=== PATIENT | female | born 1950 | race Caucasian/White ===

== ENCOUNTER 2017-08-03 09:00 | Inpatient (IN) | payer MEDICARE ==
[2017-08-03 09:44] VITALS: BMI 37.5
--- NOTE | 2017-08-08 13:17 | HP ---
HISTORY OF PRESENT ILLNESS: The patient is a 67-year-old female with a 15-year history of progressi ve pain in the left hip without injury. She has had progressive symptoms despite rest, restriction of activities, and use of anti-inflammatory medication including etodolac. She uses a cane for ambu lation and the pain has progressed to the point it is interfering with day to day activities, includ ing walking, getting dressed and sleeping. PAST MEDICAL HISTORY: The patient is otherwise in good health. She has history of hypertension, hy perlipidemia, reflux and prediabetes. She also has degenerative arthritis of her right knee. CURRENT MEDICATIONS: Include metoprolol and etodolac. ALLERGIES: She has no known allergies. FAMILY HISTORY: Otherwise unremarkable. SOCIAL HISTORY: Otherwise unremarkable. REVIEW OF SYSTEMS: Otherwise unremarkable. PHYSICAL EXAMINATION: GENERAL: Reveals a healthy heavyset female. HEENT: Unremarkable. NECK: Supple. CHEST: Clear. HEART: Regular rate and rhythm. ABDOMEN: Soft and nontender. PELVIC: Deferred. RECTAL: Deferred. BREAST: Deferred. EXTREMITIES: Pertinent findings related to the left hip and left lower extremity. There is no poin t tenderness. Left leg is approximately 1 cm short. There is decreased range of motion of the left hip and groin pain with internal rotation. There is a left antalgic gait. NEUROVASCULAR: Intact. Pulses are 1+. X-RAY FINDINGS: X-rays of the left hip reveal severe degenerative arthritis with no joint space rem aining. IMPRESSION: 1. Degenerative arthritis, left hip. 2. History of hypertension. 3. History of degenerative joint disease, right knee. PLAN: Left total hip replacement. The nature of the surgery, length of recovery and potential comp lications such as infection, loss of motion, incomplete relief, neurovascular injury, thromboembolic phenomenon, leg length discrepancy, possible transfusion and need for revision have been discussed in detail.
[2017-08-09] MEDS ORDERED: Sodium Chloride 0.9% 100 ML ONE ×2 (06:04→09:30)
[2017-08-09] MEDS ORDERED: Vancomycin HCl 1.5 GM in Sodium Chloride 0.9% 250 ML 300 ML IVPB SCH ×2 (06:15→20:00)
[2017-08-09] MEDS ORDERED: Midazolam HCl 2 mg/2 ml Vial ONE ×2 (06:30→06:44)
[2017-08-09] MEDS ORDERED: Fentanyl 100 MCG/2 ML VIAL ONE ×5 (06:30→09:23)
[2017-08-09] MEDS ORDERED: diphenhydrAMINE HCl 50 MG/ML 1 ML VIAL IVP PRN (07:00)
[2017-08-09] MEDS ORDERED: diphenhydrAMINE HCl 50 MG/ML 1 ML VIAL IM PRN (07:00)
[2017-08-09] MEDS ORDERED: Promethazine HCl 25 MG SUPP PR PRN (07:00)
[2017-08-09] MEDS ORDERED: Ketorolac Tromethamine 30 MG/ML VIAL IVP PRN ×2 (07:00→09:25)
[2017-08-09] MEDS ORDERED: Ondansetron HCl/PF 4 MG/2 ML Vial IVP PRN ×3 (07:00→09:39)
[2017-08-09] MEDS ORDERED: HYDROcodone/Acetaminophen 5/325 mg Tablet PO PRN (07:00)
[2017-08-09] MEDS ORDERED: Bupivacaine 0.25% 10 ML VIAL EPIDURAL PRN (07:00)
[2017-08-09] MEDS ORDERED: Promethazine HCl 25 MG/ML VIAL IM PRN ×2 (07:00→09:25)
[2017-08-09] MEDS ORDERED: traMADol HCl 50 MG TAB PO PRN ×3 (07:00→09:39)
[2017-08-09] MEDS ORDERED: Eucerin (Mineral Oil/Petrolatum,White) 30 gm Jar TOP PRN (07:00)
[2017-08-09] MEDS ORDERED: Naloxone HCl 0.4 mg/ml Vial IV PRN (07:00)
[2017-08-09] MEDS ORDERED: Naloxone HCl 0.4 mg/ml Vial IVP PRN (07:00)
[2017-08-09] MEDS ORDERED: Fentanyl/Bupivacaine 250 ML in Premix Bag 1 BAG EPIDURAL SCH (07:00)
[2017-08-09] MEDS ORDERED: Zolpidem Tartrate 5 MG TAB PO PRN ×2 (07:00→09:39)
[2017-08-09] MEDS ORDERED: Lidocaine 2% PF 10 ML AMP (For Epidural Use) ONE (07:17)
[2017-08-09] MEDS ORDERED: PHENYLEPHRINE-NS 100 MCG/ML 10 ML SYRINGE ONE (07:17)
[2017-08-09] MEDS ORDERED: Propofol 200 MG/20 ML VIAL ONE (07:17)
[2017-08-09] MEDS ORDERED: Bupivacaine HCl 0.5%/Epinephrine 1:200,000/PF 30 ml Vial ONE (08:39)
[2017-08-09] MEDS ORDERED: Sterile Water 10 ML ONE (09:22)
[2017-08-09] MEDS ORDERED: Meperidine HCl/PF 25 MG/ML VIAL SLOW IVP PRN (09:25)
[2017-08-09] MEDS ORDERED: Promethazine HCl 25 MG/ML VIAL SLOW IVP PRN ×2 (09:25→09:39)
[2017-08-09] MEDS ORDERED: Tranexamic Acid 1,000 MG in Sodium Chloride 0.9% 100 ML IVPB SCH ×2 (09:30→09:39)
[2017-08-09] MEDS ORDERED: Acetaminophen 325 MG TAB PO PRN (09:39)
[2017-08-09] MEDS ORDERED: HYDROcodone/Acetaminophen 10/325 mg Tablet PO PRN ×2 (09:39)
[2017-08-09] MEDS ORDERED: Fentanyl 100 MCG/2 ML VIAL SLOW IVP PRN ×2 (09:39)
[2017-08-09] MEDS ORDERED: diphenhydrAMINE HCl 25 MG CAP PO PRN (09:39)
--- NOTE | 2017-08-09 09:48 | OP ---
DATE OF PROCEDURE: 08/09/2017 SURGEON: Derrek Ralph M.D. MEAT SLICER: Fitz Díaz PA-C. ANESTHESIA: General plus epidural. PREOPERATIVE DIAGNOSIS: Degenerative arthritis, left hip. POSTOPERATIVE DIAGNOSIS: Degenerative arthritis, left hip. PROCEDURES: Left total hip replacement with uncemented Tritanium acetabular shell with X3 polyethyl ten insert and uncemented Accolade femoral stem with 36 mm Delta ceramic femoral head. NARRATIVE REPORT: After satisfactory anesthesia was induced in supine position, the patient was salma rich in the left decubitus position and this position held with the hip positioning device. A sequen tial compression device was used on the non-operative leg throughout the procedure. The patient was prepped and draped in routine sterile fashion. Hip was approached through a lateral curvilinear in cision centered over the greater trochanter and carried down to subcutaneous tissues, and bleeding p oints controlled with Bovie cautery. IT band and gluteal fascia were split skin incision. The dire ct lateral approach to the hip joint was accomplished by dividing the anterior third of the gluteus medius minimus tendons with Bovie cautery and reflecting this as a single flap anteriorly and medial ly along with the vastus lateralis. Anterior capsulectomy was performed with the hip dislocated ant eriorly. There was marked degenerative arthritis of the hip with large areas of exposed bone and mu ltiple osteophytes. The femoral neck was osteotomized with an oscillating saw using a trial prosthe sis as a guide. The acetabulum was exposed and cleaned of all soft tissue, debris and rim osteophyt es. The acetabulum was then reamed in sequence with power reamers down to bleeding subchondral bone to a total of 55 mm. It was felt that a 56 mm Trident outer shell could be placed in a press fit f ashion. The permanent X3 polyethylene insert was then snapped into position and the proximal femur exposed. It was opened with a box osteotome and rasped in sequence to accept a 3.5 Accolade femoral rasp. Trial reduction with 132 degree angle trunnion and the standard neck length 32 mm head gave appropriate size, fit, stability, and correction of leg length discrepancy. Hip was again dislocate d and the trial components removed. The permanent 3.5 Accolade femoral stem was then hammered in po sition. There was again good fit and stability of the component. The standard neck length of 36 mm Delta ceramic femoral head was then placed on the trunnion and the hip again reduced and found to b e stable. The wound was copiously irrigated with pulsatile lavage. The abductors were repaired wit h interrupted #2 Vicryl. IT band and gluteal fascia were repaired with interrupted #2 Vicryl and a running #2 Quill. Subcutaneous tissues were closed with interrupted #2 Vicryl and a running 0 Quill suture. Skin was closed with running subcuticular 3-0 Monoderm and SurgiSeal skin adhesive. Steri le dressing was applied and the patient turned to the supine position and a pillow placed between he r legs. Sequential compression device was applied to the operated leg. She was awakened and taken to recovery room in stable condition. There were no apparent intraoperative complications. The est imated blood loss was 300 mL.
[2017-08-09] MEDS ORDERED: Fentanyl/Bupivacaine 250 ML EPIDURAL ONE (10:08)
--- NOTE | 2017-08-09 10:45 | RAD ---
LEFT HIP 3 VIEWS: Date: 08/09/17 HISTORY: Status post arthroplasty. FINDINGS: Left hip arthroplasty is identified. There are postoperative changes in the soft tissues. IMPRESSION: Left hip arthroplasty. POS: [facility]
[2017-08-09] MEDS: diphenhydrAMINE HCl 25 MG CAP PO PRN ×3 (13:05→23:51)
[2017-08-09] MEDS: Sodium Chloride 0.9% 1,000 ML IV SCH ×2 (13:09→13:11)
[2017-08-09] MEDS: Metoprolol Tartrate 50 MG TAB PO SCH (20:44)
[2017-08-09] MEDS: HYDROcodone/Acetaminophen 5/325 mg Tablet PO PRN (23:51)
[2017-08-10] MEDS: Sodium Chloride 0.9% 1,000 ML IV SCH ×2 (04:51→11:37)
[2017-08-10 05:37] LABS: Hematocrit 29.5 % (36.0-47.0); Mean Platelet Volume 6.6 fL (7.4-10.4); Red Blood Cell (RBC) Count 3.19 mill/uL (4.20-5.40); White Blood Cell (WBC) Count 9.2 thou/uL (4.8-10.8)
[2017-08-10] MEDS: HYDROcodone/Acetaminophen 5/325 mg Tablet PO PRN ×2 (05:51→16:25)
[2017-08-10] MEDS: diphenhydrAMINE HCl 25 MG CAP PO PRN ×2 (05:51→11:24)
[2017-08-10] MEDS: Multivitamin W/ Minerals 1 TAB PO SCH (09:20)
[2017-08-10] MEDS: Ferrous Gluconate 324 MG TAB PO SCH ×2 (09:20→20:45)
[2017-08-10] MEDS: Senokot S 8.6-50 MG TAB PO SCH ×2 (09:21→20:45)
[2017-08-10] MEDS: Metoprolol Tartrate 50 MG TAB PO SCH ×3 (09:21→20:49)
[2017-08-11] MEDS: Sodium Chloride 0.9% 1,000 ML IV SCH ×2 (01:04→17:20)
[2017-08-11] MEDS: HYDROcodone/Acetaminophen 5/325 mg Tablet PO PRN ×3 (01:10→15:26)
[2017-08-11 05:32] LABS: Hematocrit 30.5 % (36.0-47.0); Mean Platelet Volume 6.9 fL (7.4-10.4); Red Blood Cell (RBC) Count 3.28 mill/uL (4.20-5.40); White Blood Cell (WBC) Count 12.8 thou/uL (4.8-10.8)
[2017-08-11] MEDS: Ferrous Gluconate 324 MG TAB PO SCH (07:59)
[2017-08-11] MEDS: Senokot S 8.6-50 MG TAB PO SCH (07:59)
[2017-08-11] MEDS: Multivitamin W/ Minerals 1 TAB PO SCH (08:00)
[2017-08-11] MEDS: Metoprolol Tartrate 50 MG TAB PO SCH (08:00)
[2017-08-11 08:29] VITALS: BP 134/63; TEMP 97.1
--- NOTE | 2017-08-12 13:31 | DIS ---
DATE OF ADMISSION: 08/09/2017 DATE OF DISCHARGE: 08/11/2017 PREOPERATIVE DIAGNOSIS: Degenerative arthritis, left hip. DISCHARGE DIAGNOSIS: Degenerative arthritis, left hip. PROCEDURES PERFORMED: The patient underwent a left total hip replacement with uncemented Tritanium acetabular shell with X3 polyethylene insert, and uncemented Accolate femoral stem with 36 mm Delta ceramic femoral head. HOSPITAL COURSE: Hospital stay was unremarkable. The patient was admitted to [address] where she worked with staff, physical therapy, occupational therapy, and progressed quite well. By postop day 2, she was ready to discharge home. DISCHARGE CONDITION: Good/stable. DISPOSITION: Home with family. FOLLOWUP: Followup would be in 2-3 weeks, sooner if there are problems or concerns. DISCHARGE MEDICATIONS: Given with usage instructions.
== END 2017-08-11 16:00 | disposition home or self-care (01) | DRG 470 ==
LOC: SJJU 08-09 05:20
PROVIDERS: ADMIT Orthopaedic Surgery; ATTEND Orthopaedic Surgery
PROC: 0SRB01A Replacement of Left Hip Joint with Metal Synthetic Substitute, Uncemented, Open Approach (ICD-10-PCS; principal; 2017-08-09)
DX: M16.12 Unilateral primary osteoarthritis, left hip (principal); E66.01 Morbid (severe) obesity due to excess calories; I10 Essential (primary) hypertension; Z68.37 Body mass index [BMI] 37.0-37.9, adult; K21.9 Gastro-esophageal reflux disease without esophagitis; E78.5 Hyperlipidemia, unspecified; E03.9 Hypothyroidism, unspecified
CPT/HCPCS: 36415; 85027; A4216; G8978-GP-CL; G8979-GP-CJ; G8987-GO-CK; G8988-GO-CH; J0670; J1885; J2001; J2250; J2405; J2550; J2704; J3010; J3370; J7050

== ENCOUNTER 2017-08-03 09:01 | Outpatient (CLI) | payer MEDICARE ==
[2017-08-03 10:57] LABS: Hematocrit 41.1 % (36.0-47.0); Mean Platelet Volume 6.7 fL (7.4-10.4)
[2017-08-03 11:22] LABS: Anion Gap 16 mmol/L (10-20); BUN (Urea Nitrogen) 22 mg/dL (9.8-20.1); Calc. Creatinine Clearance 0 mL/min (70-130); Calcium 9.9 mg/dL (7.8-10.44); Carbon Dioxide 24 mmol/L (23-31); Chloride 102 mmol/L (98-107); Estimated GFR-MDRD 71
[2017-08-03 11:35] LABS: Prothrombin Time 12.9 SEC (12.0-14.7)
[2017-08-03 15:03] LABS: Bilirubin Large (Negative); Blood, Urine Negative (Negative); Glucose, Urine (Dipstick) Negative (Negative); Ketone, Urine Negative (Negative); Nitrite Negative (Negative); Protein, Urine (Dipstick) Negative (Neg-Trace); Urobilinogen 0.2 mg/dL (0.2-1.0)
[2017-08-03 15:06] LABS: Bacteria/HPF None Seen HPF (None Seen); Hyaline Casts/LPF 0-3 HYALINE CAST LPF (0-3 Hyaline); Squamous Epithelial 0-3 HPF (0-3)
--- NOTE | 2017-08-05 09:04 | EKG ---
Test Reason : PREOP Blood Pressure : / mmHG Vent. Rate : 065 BPM Atrial Rate : 065 BPM P-R Int : 162 ms QRS Dur : 082 ms QT Int : 396 ms P-R-T Axes : -26 069 056 degrees QTc Int : 411 ms Normal sinus rhythm Low voltage QRS Borderline ECG No previous ECGs available Confirmed by TALIA COLEMAN ([id number]) on 08/05/2017 9:04:27 AM Referred By: HODAN Confirmed By:TALIA COLEMAN
== END 2017-08-03 09:02 | disposition home or self-care (01) ==
LOC: LABBT 09:01
PROVIDERS: ATTEND Orthopaedic Surgery
DX: Z01.818 Encounter for other preprocedural examination (principal); M16.12 Unilateral primary osteoarthritis, left hip
CPT/HCPCS: 80048; 81001; 85027; 85610; 86850; 86900; 86901; 87081; 87086; 93005; 93010

== ENCOUNTER 2017-10-07 13:43 | Outpatient (CLI) | payer MEDICARE ==
--- NOTE | 2017-10-07 15:14 | MMO ---
BILATERAL SCREENING MAMMOGRAMS: Date: 10/07/2017 COMPARISON: Prior exams of 2013, 2014, and 2015. This patient's mammogram was interpreted with the assistance of computer-aided detection. FINDINGS: Scattered fibroglandular densities. Biopsy clip in the cristal-areolar region of the right breast again noted. There is a cluster of calcifications in the left breast again noted. Recommend one-year follow-up. IMPRESSION: BI-RADS 2: Benign findings. POS: [facility]
== END 2017-10-07 13:44 | disposition home or self-care (01) ==
LOC: SCSMAMMO 13:43
PROVIDERS: ATTEND Family Medicine
DX: Z12.31 Encounter for screening mammogram for malignant neoplasm of breast (principal)
CPT/HCPCS: 77067; G0202

== ENCOUNTER 2017-12-07 08:21 | Outpatient (CLI) | payer MEDICARE ==
[2017-12-07 09:35] LABS: Hemoglobin 13.6 g/dL (12.0-16.0); Mean Corpuscular HGB CONC 33.5 g/dL (32.0-36.0); Mean Corpuscular Hemoglobin 30.3 pg (27.0-31.0); Mean Corpuscular Volume 90.5 fl (81.0-99.0); Mean Platelet Volume 6.7 fL (7.4-10.4); Platelet Count 482 thou/uL (130-400); RBC Distribution Width 12.6 % (11.5-14.5); Red Blood Cell (RBC) Count 4.48 mill/uL (4.20-5.40)
[2017-12-07 09:40] LABS: Bilirubin Large (Negative); Blood, Urine Negative (Negative); Clarity CLEAR (Clear); Glucose, Urine (Dipstick) Negative (Negative); Leukocyte Trace (Negative); Nitrite Negative (Negative); Protein, Urine (Dipstick) Negative (Neg-Trace); Specific Gravity, Urine 1.022 (1.002-1.036); Urobilinogen 0.2 mg/dL (0.2-1.0)
[2017-12-07 09:41] LABS: Bacteria/HPF None Seen HPF (None Seen); Hyaline Casts/LPF 4-6 HYALINE CAST LPF (0-3 Hyaline); Pathc Cast-AUWi Flag 1.76 (0-2.49); RBC/HPF 0-3 HPF (0-3); Squamous Epithelial 0-3 HPF (0-3); WBC/HPF 0-3 HPF (0-3)
[2017-12-07 09:43] LABS: Prothrombin Time 13.2 SEC (12.0-14.7)
[2017-12-07 09:47] LABS: Anion Gap 12 mmol/L (10-20); BUN (Urea Nitrogen) 16 mg/dL (9.8-20.1); Calc. Creatinine Clearance 0 mL/min (70-130); Calcium 10.2 mg/dL (7.8-10.44); Carbon Dioxide 27 mmol/L (23-31); Chloride 106 mmol/L (98-107); Estimated GFR-MDRD 74; Glucose 93 mg/dL (80-115); Potassium 4.9 mmol/L (3.5-5.1); Sodium 140 mmol/L (136-145)
== END 2017-12-07 08:22 | disposition home or self-care (01) ==
LOC: LABBT 08:21
PROVIDERS: ATTEND Orthopaedic Surgery
DX: Z01.818 Encounter for other preprocedural examination (principal); M17.11 Unilateral primary osteoarthritis, right knee
CPT/HCPCS: 80048; 81001; 85027; 85610; 86850; 86900; 86901; 87081; 87086

== ENCOUNTER 2017-12-13 07:26 | Day surgery (SDC) | payer MEDICARE ==
[2017-12-07 08:36] VITALS: BMI 37.3
--- NOTE | 2017-12-07 09:02 | HP ---
HISTORY OF PRESENT ILLNESS: The patient is a 67-year-old female with a long history of progressive d egenerative arthritis of the right knee without injury. She has had progressive symptoms despite res t, restriction of activities, use of anti-inflammatory medications, and previous cortisone injections . The pain is now interfering with day-to-day activities including walking and getting dressed. PAST MEDICAL HISTORY: The patient underwent left total hip replacement approximately 4 months ago wi th good results and has not had any further problems. She continues to use a cane because of right k nee pain, but no left hip pain. PAST MEDICAL HISTORY: As noted above. The patient is otherwise in good health. She has history of prediabetes and hypertension. CURRENT MEDICATIONS: Include metoprolol and Meloxicam. ALLERGIES: She has no known allergies. FAMILY HISTORY/SOCIAL HISTORY/REVIEW OF SYSTEMS: Otherwise unremarkable. PHYSICAL EXAMINATION: GENERAL: Reveals a healthy heavyset female. HEENT: Unremarkable. NECK: Supple. CHEST: Clear. HEART: Regular rate and rhythm. ABDOMEN: Soft, nontender. PELVIC/RECTAL/BREAST: Exams are deferred. EXTREMITIES: Pertinent findings related to the right knee. There is no definite effusion. There is mild valgus deformity. There is tenderness and crepitus over the lateral joint line. Range of nely on is 5-105 degrees. There is trace valgus laxity. There are palpable distal pulses. There is a ri ght antalgic gait. Neurovascular exam is intact. LABORATORY AND X-RAY FINDINGS: X-rays of the right knee reveal bone on bone collapse laterally with progression from previous x-rays. IMPRESSION: 1. Degenerative arthritis, right knee. 2. Status post left total hip replacement. PLAN: Right total knee replacement. The nature of the surgery, length of recovery, and potential co mplications such as infection, loss of motion, incomplete relief, delayed wound healing, neurovascula r injury, thromboembolic phenomena, possible transfusion, and need for revision have been discussed i n detail.
[2017-12-13] MEDS ORDERED: Tranexamic Acid 1,000 MG/100 ML BAG ONE ×2 (08:09→12:31)
[2017-12-13] MEDS ORDERED: CEFAZOLIN/Water 2 GM/20 ML SYRINGE ONE (08:09)
[2017-12-13] MEDS ORDERED: Vancomycin HCl 1.5 GM in Sodium Chloride 0.9% 250 ML 300 ML IVPB SCH ×2 (08:15→20:00)
[2017-12-13] MEDS ORDERED: Fentanyl 100 MCG/2 ML VIAL ONE ×4 (09:35→13:22)
[2017-12-13] MEDS ORDERED: Midazolam HCl 2 mg/2 ml Vial ONE (09:35)
[2017-12-13] MEDS ORDERED: Promethazine HCl 25 MG/ML VIAL IM PRN ×2 (09:48→12:39)
[2017-12-13] MEDS ORDERED: Fentanyl 100 MCG/2 ML VIAL IV PRN (09:48)
[2017-12-13] MEDS ORDERED: Ondansetron HCl/PF 4 MG/2 ML Vial IVP PRN ×3 (09:48→12:55)
[2017-12-13] MEDS ORDERED: Zolpidem Tartrate 5 MG TAB PO PRN ×2 (09:48→12:55)
[2017-12-13] MEDS ORDERED: HYDROcodone/Acetaminophen 10/325 mg Tablet PO PRN ×3 (09:48→12:55)
[2017-12-13] MEDS ORDERED: traMADol HCl 50 MG TAB PO PRN ×3 (09:48→12:55)
[2017-12-13] MEDS ORDERED: Ropivacaine 0.2% 550 ML 550 ML NERVE BLCK SCH (09:48)
[2017-12-13] MEDS ORDERED: Lidocaine 1% w/Epinephrine 1:200K 30 ML VIAL ONE (09:53)
[2017-12-13] MEDS ORDERED: Bupivacaine 0.25% HCL 30 ML VIAL ONE (09:53)
[2017-12-13] MEDS: Sodium Chloride 0.9% 1,000 ML IV SCH ×2 (12:05→23:34)
[2017-12-13] MEDS: Ketorolac Tromethamine 30 MG/ML VIAL IVP SCH ×3 (12:05→23:09)
[2017-12-13] MEDS ORDERED: Promethazine HCl 25 MG/ML VIAL SLOW IVP PRN ×2 (12:39→12:55)
[2017-12-13] MEDS ORDERED: Tranexamic Acid 1,000 MG in Sodium Chloride 0.9% 100 ML IVPB SCH ×2 (12:45→12:55)
[2017-12-13] MEDS ORDERED: Acetaminophen 325 MG TAB PO PRN (12:55)
[2017-12-13] MEDS ORDERED: Fentanyl 100 MCG/2 ML VIAL SLOW IVP PRN ×2 (12:55)
[2017-12-13] MEDS ORDERED: diphenhydrAMINE 25 MG CAP PO PRN (12:55)
[2017-12-13] MEDS ORDERED: Ketorolac Tromethamine 30 MG/ML VIAL IVP SCH (14:00)
--- NOTE | 2017-12-13 14:07 | OP ---
DATE OF PROCEDURE: 12/13/2017 PREOPERATIVE DIAGNOSIS: Right knee end-stage tricompartmental osteoarthritis. POSTOPERATIVE DIAGNOSIS: Right knee end-stage tricompartmental osteoarthritis. OPERATIVE PROCEDURE: Cemented cruciate-sparing computer-assisted navigated right total knee arthropl rosalino. SURGEON: Derrek Ralph M.D. COLLISION CENTER MANAGER: Grzegorz Ho PA-C. ANESTHESIA: General via laryngeal mask airway augmented with indwelling adductor canal block with a single shot sciatic block. COMPONENTS USED: [employer] Triathlon cemented cruciate-sparing size 4, cruciate-sparing fe moral component size 3, cemented universal tibial baseplate, 9 mm polyethylene fixed bearing insert, A29 patellar button. TOURNIQUET TIME: 66 minutes at 300 mmHg. FINDINGS: End-stage severe degenerative tricompartmental disease, bone on bone arthrosis, periarticu lar osteophyte formation, large serous effusion. FLUIDS: Urine output was 200 mL and input was 1 liter of crystalloid. ESTIMATED BLOOD LOSS: Less than 100. DRAINS: None. SPECIMENS: None. COMPLICATIONS: None. COUNTS: Correct. INDICATIONS FOR SURGERY: Ms. Velarde is a 67-year-old white female who has had progressive right knee pain amplified with standing and walking for the last 5-7 years. She has failed conservative manage ment and elected to proceed with total knee arthroplasty as definitive treatment of her pain. PROCEDURE IN DETAIL: After informed consent was obtained in the preoperative holding area. The sav[place] ent was taken to the operative suite where general anesthesia was induced. Once adequate level of ge neral anesthesia was obtained, the patient was positioned and a well-padded tourniquet was placed coco und the right proximal thigh. The right lower extremity was then prepped and draped in the usual brittney rile fashion. Prior to exsanguination, a time out was called and all members of the surgical team ag kishore upon site, surgeon, and patient. The extremity was then exsanguinated and the tourniquet was ra ised. A midline longitudinal incision was then made directly over the patella extending two fingerbr eadths above the superior pole of the patella and two fingerbreadths inferior to the inferior patella r pole of the patella. Deeper subcutaneous layers were dissected sharply and local bleeding was cont rolled with Bovie electrocautery. A quad tendon longitudinal split was then made sharply and a media n parapatellar arthrotomy was carried out both sharp and with Bovie electrocautery, carried down to o ne fingerbreadth medial to the tibial tubercle. The knee was then placed into flexion and the patell a was everted nicely, and a copious fat pad ectomy was performed allowing for greater exposure of the tibia. The computer-assisted distal femoral fiducial was then placed and pinned firmly, and the dis claire femoral cutting guide was pinned firmly into place. The oscillating saw was then used to remove the appropriate amount of bone. The 4-in-1 cutting block was then placed on the distal femur and the oscillating saw was used to remove the appropriate amount of bone off of the anterior, posterior, an d chamfer cuts. After completion of the chamfer cuts, the box-cutting guide was placed, malleted fir mly into place and pinned securely, and an osteotome was used to make the distal cut and the oscillat ing saw was then used to make the medial and lateral box cuts. This came out quite nicely and was re moved with Bovie electrocautery, and the oscillating saw was then used to broaden the lateral medial castañeda of the box cut. After completion of bone cuts, the anterior cruciate ligament was resected sha rply and the posterior cruciate ligament retractor was placed and the tibia was subluxed for better e xposure. Partial meniscectomies were carried out, and the tibial computer-assisted fiducial was pinn ed, and the cutting guide was placed. Oscillating saw was then used to remove the bone with Hohmann retractors used to take care and protect the collateral ligaments. After the tibial resection was pe rformed, a laminar qa tester was placed in between the freshened bone cuts. The knee placed at 90 deg loraine and further bilateral meniscectomies were carried out, and the curved osteotome and curettage wa s used to remove any excess bone spurs in the posterior compartment. The trial femoral component, ti bial baseplate were placed with the appropriate polyethylene trial insert with an appropriate polyeth ylene spacer and patellar button. The knee was taken through full range of motion with flexion and e xtension from 0-90 degrees and patellar broach squarely in the trochlea without any squinting or subl uxation noted. The knee was also stable to varus and valgus stressing at 0, 15, 45, and 90 degrees o f flexion. The drawer was negative. All trial components were then removed and the keel punch was u sed to provide the appropriate defect in the tibia with a mallet. The freshened bone cuts were copio usly irrigated with pulsatile lavage of about 1-1/2 liters to remove all excess debris. The freshene d bone cuts were then dried and with suction and lap sponge. The knee was placed in flexion and retr actors were placed to provide access to all bone cuts. Tobramycin impregnated methyl methacrylate ce ment was then placed on the freshened bone cuts and implants which were malleted firmly into place. Curettage and [place] elevators were used to remove any excess bone cement. The knee was placed into f ull extension and the patellar button was placed under compression, and the cement was allowed to cur e. Once completed, the components were again taken through full range of motion and copious irrigati on of the knee was carried out with another liter of normal saline. All components were inspected fu lly with full range of motion and varus and valgus stressing. There was no laxity noted and full exte nsion was observed clinically. Primary closure was accomplished with #2 interrupted Vicryl stitch of the arthrotomy defect. This was oversewn with a #2 running Quill barbed stitch. The subcutaneous l roscoe was then closed with a running 0 barbed Monocryl stitch and skin closure accomplished with a run max subcuticular 3-0 Monocryl barbed Quill stitch and augmented with cement on the skin. Tourniquet was lowered. Good spontaneous return of distal pulses was noted clinically and a sterile dressing w as applied to the incision. The procedure was terminated without any complications. The patient was awakened in the operative suite and taken to the recovery room in stable condition.
--- NOTE | 2017-12-13 14:26 | RAD ---
TWO VIEWS OF THE RIGHT KNEE: INDICATION: Status post right total knee arthroplasty. FINDINGS: There is a right total knee prosthesis that projects in the expected position. There is no gross com plication evident. IMPRESSION: Postoperative knee. POS: BENJI
[2017-12-13] MEDS ORDERED: Ropivacaine 0.2% HCl/PF (40 MG/20 ML VIAL) ONE (14:51)
[2017-12-13] MEDS ORDERED: Ropivacaine 0.5% HCl/PF (150 MG/30 ML VIAL) ONE (14:51)
[2017-12-13] MEDS ORDERED: Dexamethasone 20 MG/5 ML VIAL ONE (15:18)
[2017-12-13] MEDS ORDERED: Propofol 200 MG/20 ML VIAL ONE (15:18)
[2017-12-13] MEDS ORDERED: Ondansetron HCl/PF 4 MG/2 ML Vial ONE (15:18)
[2017-12-13] MEDS ORDERED: Lidocaine 1% PF 5 ML VIAL ONE (15:18)
[2017-12-13] MEDS: CEFAZOLIN/Water 2 GM/20 ML SYRINGE SLOW IVP SCH ×2 (16:14→23:09)
[2017-12-13] MEDS ORDERED: Calcium Carbonate 500 MG ChewTAB PO PRN (20:13)
[2017-12-13] MEDS ORDERED: Mag-Al 1200 mg/1200 mg/30 ML UDCUP PO PRN (20:13)
[2017-12-13] MEDS: Ferrous Gluconate 324 MG TAB PO SCH (21:35)
[2017-12-13] MEDS: Senokot S 8.6-50 MG TAB PO SCH (21:35)
[2017-12-13] MEDS: Aspirin 81 mg Enteric Coated Tablet PO SCH (21:35)
[2017-12-13] MEDS: Metoprolol Tartrate 50 MG TAB PO SCH (21:35)
--- NOTE | 2017-12-13 21:51 | PDOC.PN ---
- Subjective Encounter Start Date: 12/13/17 Encounter Start Time: 19:30 Patient seen and examined. No new complaints. No CP/SOB. - Objective MAR Reviewed: Yes Vital Signs & Weight: Vital Signs (12 hours) Temp Pulse Pulse Resp BP BP Pulse Ox 12/13/17 17:10 97.7 F 72 18 142/72 H 12/13/17 15:54 81 147/75 H 12/13/17 14:34 97.8 F 68 20 98 12/13/17 13:50 97.8 F 68 20 172/80 H 97 Weight Weight 238 lb I&O: 12/12/17 12/13/17 12/14/17 06:59 06:59 06:59 Intake Total 800 Output Total 400 Balance 400 Result Diagrams: 12/14/17 05:19 EKG Reviewed by me: Yes (SR) Phys Exam - Physical Examination Constitutional: NAD Respiratory: no wheezing, no rhonchi Cardiovascular: RRR, no rub Gastrointestinal: soft, non-tender, positive bowel sounds Musculoskeletal: no edema Neurological: moves all 4 limbs Dx/Plan - Plan DVT proph w/SCDs IMPRESSION: 1. HTN - on Metoprolol 2. DJD 3. Dyslipidemia - diet controlled 4. Prediabetes 5. GERD 6. Obesity BMI 37.3 7. CKD 2 PLAN: * Cont Metoprolol * Add PRN meds * Cont to monitor * Add Tums/Maalox for dyspepsia * Will follow. Thank you for this consultation. * Full Code. DPOA - self/family. Laboratory Tests 01/27/17 11/09/17 12/07/17 09:09 10:37 09:17 Creatinine 0.78 Estimated GFR (MDRD) 74 Triglycerides 152 H Cholesterol 210 H LDL Cholesterol, Calc 120 TSH 3rd Generation 3.9872 Review of Systems - Review of Systems Respiratory: negative: Cough, Dry, Shortness of Breath, Hemoptysis, SOB with Excertion, Pleuritic Pain, Sputum, Wheezing Cardiovascular: negative: chest pain, palpitations, orthopnea, paroxysmal nocturnal dyspnea, edema, light headedness Gastrointestinal: Other (dyspepsia). negative: Nausea, Vomiting, Abdominal Pain , Diarrhea, Constipation, Melena, Hematochezia - Medications/Allergies Allergies/Adverse Reactions: Allergies Allergy/AdvReac Type Severity Reaction Status Date / Time No Known Allergies Allergy Unverified 12/07/17 08:37 Medications: Current Medications Acetaminophen (Tylenol) 650 mg PO Q4H PRN PRN Reason: OJEDA/ T > 101F; Mild Pain (1-3) Hydrocodone Bitart/Acetaminophen ([place] 10/325) 1 tab PO Q4H PRN PRN Reason: Moderate Pain (4-6) Hydrocodone Bitart/Acetaminophen ([place] 10/325) 2 tab PO Q4H PRN PRN Reason: Severe Pain (7-10) Al Hydroxide/Mg Hydroxide (Maalox) 30 ml PO Q6H PRN PRN Reason: Heartburn or Indigestion Aspirin (Ecotrin) 81 mg PO BID [facility] Last Admin: 12/13/17 21:35 Dose: 81 mg Calcium Carbonate (Tums) 1,000 mg PO Q4H PRN PRN Reason: Heartburn or Indigestion Cefazolin Sodium (Ancef) 2 gm SLOW IVP 0800,1600,2359 [facility] Stop: 12/14/17 00:00 Last Admin: 12/13/17 16:14 Dose: 2 gm Diphenhydramine HCl (Benadryl) 25 mg PO Q6H PRN PRN Reason: Itching Fentanyl (Sublimaze) 50 mcg IV Q1H PRN PRN Reason: Breakthrough Pain Ferrous Gluconate (Fergon) 324 mg PO BID [facility] Last Admin: 12/13/17 21:35 Dose: 324 mg Ropivacaine (Ropivacaine 0.2% 550 Ml) 550 mls @ 10 mls/hr NERVE BLCK INF [facility] Sodium Chloride (Normal Saline 0.9%) 1,000 mls @ 100 mls/hr IV .Q10H [facility] Last Admin: 12/13/17 12:05 Dose: Not Given Vancomycin HCl 1.5 gm/ Sodium (Chloride) 300 mls @ 200 mls/hr IVPB 1999 [facility] Stop: 12/13/17 23:59 Last Admin: 12/13/17 21:00 Dose: 300 mls Iron/Minerals/Multivitamins (Theragran M) 1 tab PO DAILY [facility] Ketorolac Tromethamine (Toradol) 30 mg IVP Q6HR [facility] Stop: 12/15/17 06:01 Last Admin: 12/13/17 17:17 Dose: 30 mg Metoprolol Tartrate (Lopressor) 50 mg PO BID [facility] Last Admin: 12/13/17 21:35 Dose: 50 mg Ondansetron HCl (Zofran) 4 mg IVP Q6H PRN PRN Reason: Nausea/Vomiting Promethazine HCl (Phenergan) 12.5 mg IM Q4H PRN PRN Reason: Nausea Promethazine HCl (Phenergan) 12.5 mg SLOW IVP Q4H PRN PRN Reason: Nausea/Vomiting Senna/Docusate Sodium (Senokot S) 2 tab PO BID [facility] Last Admin: 12/13/17 21:35 Dose: 2 tab Sodium Chloride (Flush - Normal Saline) 10 ml IVF PRN PRN PRN Reason: Saline Flush Tramadol HCl (Ultram) 50 mg PO Q6H PRN PRN Reason: Mild Pain (1-3) Tramadol HCl (Ultram) 100 mg PO Q6H PRN PRN Reason: Mild Pain (1-3) Zolpidem Tartrate (Ambien) 5 mg PO HSPRN PRN PRN Reason: Insomnia
[2017-12-14 05:58] LABS: Hemoglobin 11.7 g/dL (12.0-16.0); Mean Corpuscular HGB CONC 33.8 g/dL (32.0-36.0); Mean Corpuscular Hemoglobin 30.5 pg (27.0-31.0); Mean Corpuscular Volume 90.5 fl (81.0-99.0); Platelet Count 419 thou/uL (130-400); RBC Distribution Width 12.4 % (11.5-14.5); Red Blood Cell (RBC) Count 3.82 mill/uL (4.20-5.40); White Blood Cell (WBC) Count 10.2 thou/uL (4.8-10.8)
[2017-12-14] MEDS: Ketorolac Tromethamine 30 MG/ML VIAL IVP SCH ×2 (06:03→15:42)
[2017-12-14] MEDS ORDERED: Multivitamin W/ Minerals 1 TAB PO SCH (09:00)
[2017-12-14] MEDS: Ferrous Gluconate 324 MG TAB PO SCH (09:13)
[2017-12-14] MEDS: Aspirin 81 mg Enteric Coated Tablet PO SCH (09:13)
[2017-12-14] MEDS: Metoprolol Tartrate 50 MG TAB PO SCH (09:13)
[2017-12-14] MEDS: HYDROcodone/Acetaminophen 10/325 mg Tablet PO PRN ×2 (09:13→15:25)
[2017-12-14] MEDS: Senokot S 8.6-50 MG TAB PO SCH (09:13)
[2017-12-14 09:48] VITALS: BP 132/78; TEMP 98.1
--- NOTE | 2017-12-14 12:20 | DIS ---
DATE OF DISCHARGE: 12/14/2017 PREOPERATIVE DIAGNOSIS: Right knee end-stage tricompartmental osteoarthritis. DISCHARGE DIAGNOSIS: Right knee end-stage tricompartmental osteoarthritis. PROCEDURE: The patient underwent a cemented cruciate sparing computer-assisted navigated right total knee arthroplasty. HOSPITAL COURSE: Hospital stay was unremarkable. She was admitted to [address] she worked with staff, physical therapy, occupational therapy, and did quite well. By postoperative day 1, she was ready to discharge home. DISCHARGE CONDITION: Good/stable. DISPOSITION: Home with family. FOLLOWUP: Follow up would be in 2-3 weeks, sooner with problems or concerns. DISCHARGE MEDICATIONS: Given with usage instructions. The patient would also go home with an ON-Q pain pump.
[2017-12-14] MEDS: Sodium Chloride 0.9% 1,000 ML IV SCH (15:37)
== END 2017-12-14 16:48 | disposition home or self-care (01) ==
LOC: SDC 07:26 → SJJU 09:08 → SDC 12-14 16:48
PROVIDERS: ATTEND Orthopaedic Surgery
PROC: 0SRC0J9 Replacement of Right Knee Joint with Synthetic Substitute, Cemented, Open Approach (ICD-10-PCS; principal; 2017-12-13)
PROC: 8E0YXBZ Computer Assisted Procedure of Lower Extremity (ICD-10-PCS; 2017-12-13)
DX: M17.11 Unilateral primary osteoarthritis, right knee (principal); M19.90 Unspecified osteoarthritis, unspecified site; E78.5 Hyperlipidemia, unspecified; K21.9 Gastro-esophageal reflux disease without esophagitis; E66.9 Obesity, unspecified; Z68.37 Body mass index [BMI] 37.0-37.9, adult; I12.9 Hypertensive chronic kidney disease with stage 1 through stage 4 chronic kidney disease, or unspecified chronic kidney disease; N18.2 Chronic kidney disease, stage 2 (mild); R73.03 Prediabetes; E03.9 Hypothyroidism, unspecified; Z79.1 Long term (current) use of non-steroidal anti-inflammatories (NSAID); Z79.899 Other long term (current) drug therapy; Z90.711 Acquired absence of uterus with remaining cervical stump; Z96.642 Presence of left artificial hip joint; Z98.890 Other specified postprocedural states
CPT/HCPCS: 20985; 27447; 73560; 85027; 97116 ×2; 97139 ×2; 97150; 97530 ×2; A4306; C1713; C1776; G8978; G8979; 36415; J1100; J1885; J2001; J2250; J2405; J2704; J2795; J3010; J3370; J7050; S0020

== ENCOUNTER 2018-10-20 10:19 | Outpatient (CLI) | payer MEDICARE | END 2018-10-20 10:20 | disposition home or self-care (01) | LOC: BICMAMMO 10:19 | PROVIDERS: ATTEND Family Medicine | DX: Z12.31 Encounter for screening mammogram for malignant neoplasm of breast (principal) | CPT/HCPCS: 77063; 77067 ==

== ENCOUNTER 2018-12-20 10:09 | Outpatient (CLI) | payer MEDICARE ==
--- NOTE | 2018-12-20 11:42 | BD ---
DEXA BONE DENSITY STUDY: Date: 12/20/18 HISTORY: 68-year-old postmenopausal female for screening for osteoporosis. FINDINGS: Lumbar Spine: BMD (g/cm2) L1 0.960 T-Score: -0.3 L2 1.055 T-Score: 0.2 L3 0.972 T-Score: -1.0 L4 1.033 T-Score: -0.3 L1-L4 1.006 T-Score: -0.4 Right Femoral Neck: 0.761 T-Score: -0.8 Total Femur: 0.817 T-Score: -1.0 IMPRESSION: Normal bone mineral density. POS: [facility]
== END 2018-12-20 10:10 | disposition home or self-care (01) ==
LOC: BICMAMMO 10:09
PROVIDERS: ATTEND Family Medicine
DX: Z13.820 Encounter for screening for osteoporosis (principal); Z78.0 Asymptomatic menopausal state
CPT/HCPCS: 77080

== ENCOUNTER 2020-01-11 11:59 | Outpatient (CLI) | payer MEDICARE ==
--- NOTE | 2020-01-11 13:17 | MMO ---
Bilateral MAMMO Bilat Screen [facility]. CLINICAL HISTORY: Patient is 69 years old and is seen for screening. The patient has no family history of breast cancer. The patient has no personal history of cancer. VIEWS: The views performed were: bilateral craniocaudal with tomosynthesis and bilateral mediolateral oblique with tomosynthesis. FILMS COMPARED: The present examination has been compared to prior imaging studies performed at [facility] on 07/09/2015, 07/22/2016 and 10/07/2017, and at [facility] on 10/20/2018. This study has been interpreted with the assistance of computer-aided detection. MAMMOGRAM FINDINGS: There are scattered fibroglandular densities. Benign calcifications are noted bilaterally. There are no suspicious masses, suspicious calcifications, or new areas of architectural distortion. IMPRESSION: THERE IS NO MAMMOGRAPHIC EVIDENCE OF MALIGNANCY. A ROUTINE FOLLOW-UP MAMMOGRAM IN 1 YEAR IS RECOMMENDED. THE RESULTS OF THIS EXAM WERE SENT TO THE PATIENT. ACR BI-RADS Category 2 - Benign finding MAMMOGRAPHY NOTE: 1. A negative mammogram report should not delay a biopsy if a dominant of clinically suspicious mass is present. 2. Approximately 10% to 15% of breast cancers are not detected by mammography. 3. Adenosis and dense breasts may obscure an underlying neoplasm. Reported by: NITA SHOEMAKER MD Electonically Signed: [id number]
== END 2020-01-11 12:00 | disposition home or self-care (01) ==
LOC: BICMAMMO 11:59
PROVIDERS: ATTEND Family Medicine
DX: Z12.31 Encounter for screening mammogram for malignant neoplasm of breast (principal)
CPT/HCPCS: 77063; 77067

== ENCOUNTER 2021-02-13 10:24 | Outpatient (CLI) | payer MEDICARE | END 2021-02-13 10:25 | disposition home or self-care (01) | LOC: BICMAMMO 10:24 | PROVIDERS: ATTEND Family Medicine | DX: Z12.31 Encounter for screening mammogram for malignant neoplasm of breast (principal) | CPT/HCPCS: 77063; 77067 ==

== ENCOUNTER 2021-08-25 17:00 | Outpatient (CLI) | payer MEDICARE | END 2021-08-25 17:01 | disposition home or self-care (01) | LOC: SLEEPLAB 17:00 | PROVIDERS: ATTEND Family Medicine | DX: G47.33 Obstructive sleep apnea (adult) (pediatric) (principal); R53.83 Other fatigue; R09.89 Other specified symptoms and signs involving the circulatory and respiratory systems; R06.83 Snoring; E11.9 Type 2 diabetes mellitus without complications; I10 Essential (primary) hypertension; G47.00 Insomnia, unspecified; E66.9 Obesity, unspecified; Z68.41 Body mass index [BMI] 40.0-44.9, adult | CPT/HCPCS: 95806 ==

== ENCOUNTER 2021-11-19 15:15 | Outpatient (CLI) | payer MEDICARE | END 2021-11-19 15:16 | disposition home or self-care (01) | LOC: BICMAMMO 15:15 | PROVIDERS: ATTEND Family Medicine | DX: Z13.820 Encounter for screening for osteoporosis (principal); N95.1 Menopausal and female climacteric states; M85.851 Other specified disorders of bone density and structure, right thigh | CPT/HCPCS: 77080 ==

== ENCOUNTER 2022-11-25 09:43 | Outpatient (CLI) | payer MEDICARE | END 2022-11-25 09:44 | disposition home or self-care (01) | LOC: BICMAMMO 09:43 | PROVIDERS: ATTEND Family Medicine | DX: Z12.31 Encounter for screening mammogram for malignant neoplasm of breast (principal); Z91.89 Other specified personal risk factors, not elsewhere classified | CPT/HCPCS: 77063; 77067 ==

== ENCOUNTER 2023-11-30 08:34 | Outpatient (CLI) | payer MEDICARE | END 2023-11-30 08:35 | disposition home or self-care (01) | LOC: BICMAMMO 08:34 | PROVIDERS: ATTEND Family Medicine | DX: Z12.31 Encounter for screening mammogram for malignant neoplasm of breast (principal); Z13.820 Encounter for screening for osteoporosis; Z91.89 Other specified personal risk factors, not elsewhere classified; Z78.0 Asymptomatic menopausal state | CPT/HCPCS: 77063; 77067; 77080 ==

== ENCOUNTER 2024-12-01 09:36 | Outpatient (CLI) | payer MEDICARE | END 2024-12-01 09:37 | disposition home or self-care (01) | LOC: BICMAMMO 09:36 | PROVIDERS: ATTEND Family Medicine | DX: Z12.31 Encounter for screening mammogram for malignant neoplasm of breast (principal); Z91.89 Other specified personal risk factors, not elsewhere classified | CPT/HCPCS: 77063; 77067 ==

== ENCOUNTER 2025-05-08 13:30 | Outpatient (CLI) | payer MEDICARE | END 2025-05-08 13:31 | disposition home or self-care (01) | LOC: MRI 13:30 | PROVIDERS: ATTEND Family Medicine | DX: R41.89 Other symptoms and signs involving cognitive functions and awareness (principal); H74.8X2 Other specified disorders of left middle ear and mastoid; I67.82 Cerebral ischemia; R90.82 White matter disease, unspecified | CPT/HCPCS: 70551 ==